=== PATIENT | female | born 1985 | race African-American/Black ===

== ENCOUNTER 2020-10-25 06:51 | Inpatient (IN) | payer MEDICAID ==
[~2020-10-25 06:51] MED LIST: Bupivacaine 0.25% 10 ML SDV ONE
[2020-10-25] MEDS ORDERED: Nalbuphine 10 MG/1 ML Vial IVPUSH PRN (06:58)
[2020-10-25] MEDS ORDERED: Ondansetron 4 MG/2 ML SDV IVPUSH PRN (06:58)
[2020-10-25] MEDS ORDERED: Sodium Chloride 0.9% 10 ML Syringe FLUSH PRN (06:58)
[2020-10-25] MEDS ORDERED: Oxytocin/Lactated Ringers 10 UNIT/1,000 ML BAG IV SCH ×2 (07:00)
--- NOTE | 2020-10-25 07:03 | PCM.LDHP ---
L&D History of Present Illness - General Date of Service: 10/25/20 Admit Problem/Dx: Patient Status Order with Admit Dx/Problem 10/25/20 07:00 Patient Status [ADT] Routine Admission Diagnosis/Problem Admission Diagnosis/Problem Normal in third trimester Source of Information: Patient History Limitations: Reports: No Limitations - History of Present Illness Introduction:: Patient is a 35 y/o at 39 0/7 wks who presents for IOL. Doing well. No contractions - Related Data Allergies/Adverse Reactions: Allergies Allergy/AdvReac Type Severity Reaction Status Date / Time No Known Allergies Allergy Verified 11/06/18 22:42 Home Medications: Home Meds Acetaminophen [Tylenol] 650 mg PO Q6H PRN tablet 11/08/18 [Rx] Benzocaine/Menthol [Dermoplast Pain Relief [place]] 1 spray TOP ASDIRECTED PRN canister 11/08/18 [Rx] Docusate Sodium [Colace] 100 mg PO BID PRN cap 11/08/18 [Rx] Hydrocortisone Acetate [Anucort-HC] 25 mg RECTAL BID PRN supp 11/08/18 [Rx] Ibuprofen [Motrin] 600 mg PO Q6H PRN tablet 11/08/18 [Rx] Lanolin [Lansinoh HPA] 1 applic TOP ASDIRECTED PRN tube 11/08/18 [Rx] Vit with Ca/FA/Iron [ Plus Iron] 1 each PO DAILY tablet 11/08/18 [Rx] witch Arvin [Tucks] 1 pad TOP ASDIRECTED PRN pad 11/08/18 [Rx] Past Medical History - Past Health History Medical/Surgical History: Denies 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, : 4 Para: 3 LMP (Approximate): Social & Family History - Family History Family Medical History: No Pertinent Family History - Tobacco Use Tobacco Use Status *Q: Never Tobacco User - Caffeine Use Caffeine Use: Reports: None - Alcohol Use Alcohol Use History: No - Recreational Drug Use Recreational Drug Use: No - Living Situation & Occupation Living situation: Reports: , with Spouse H&P Review of Systems - Review of Systems: Review Of Systems: See Below General: Reports: No Symptoms Pulmonary: Reports: No Symptoms Cardiovascular: Reports: No Symptoms Gastrointestinal: Reports: No Symptoms Genitourinary: Reports: No Symptoms Musculoskeletal: Reports: No Symptoms Psychiatric: Reports: No Symptoms Neurological: Reports: No Symptoms L&D Exam - Exam Exam: See Below - OB Specific Contraction Intensity: Irritability Movement: Active Heart Tones: Present Heart Tones per Min: 140 Heart Rate (FHR) Variability: Moderate (6-25 bmp) Presentation: Vertex - Schuster Score Schuster Score Cervix Position: Midposition Schuster Score Consistency: Soft Schuster Score Effacement: 31-50% Schuster Score Dilation: 3-4 cm Schuster Score 's Station: -2 Schuster Score Total: 7 - Exam General: Alert, Oriented, Cooperative Lungs: Clear to Auscultation, Normal Respiratory Effort Cardiovascular: Regular Rate, Regular Rhythm GI/Abdominal Exam: Soft, Non-Tender Genitourinary: Normal external exam Extremities: Normal Inspection Skin: Warm, Dry, Intact - Patient Data Result Diagrams: 10/25/20 07:25 - Problem List (1) 39 weeks gestation of SNOMED Code(s): 63498843 ICD Code: Z3A.39 - 39 WEEKS GESTATION OF Status: Acute Current Visit: Yes Problem List Initiated/Reviewed/Updated: Yes Orders Last 24hrs: Active Orders 24 hr Category Date Time Status Patient Status [ADT] Routine ADT 10/25/20 07:00 Ordered Activity as Tolerated [RC] PFP Care 10/25/20 07:00 Ordered Communication Order [RC] ASDIRECTED Care 10/25/20 07:00 Ordered Communication Order [RC] ASDIRECTED Care 10/25/20 07:00 Ordered Communication Order [RC] ASDIRECTED Care 10/25/20 07:00 Ordered Non Stress Test [RC] PER UNIT ROUTINE Care 10/25/20 07:00 Ordered Notify Provider [RC] ASDIRECTED Care 10/25/20 07:00 Ordered Notify Provider [RC] PRN Care 10/25/20 07:00 Ordered Peripheral IV Care [RC] . DIRECTED Care 10/25/20 07:01 Ordered Vaginal Exam [RC] ASDIRECTED Care 10/25/20 07:00 Ordered Vital Signs [RC] ASDIRECTED Care 10/25/20 07:00 Ordered Vital Signs [RC] PER UNIT ROUTINE Care 10/25/20 07:00 Ordered Regular Diet [DIET] Diet 10/25/20 Breakfast Ordered CBC W/O DIFF,HEMOGRAM [HEME] Routine Lab 10/25/20 06:58 Ordered CORONAVIRUS COVID-19 ROM [MOLEC] Stat Lab 10/25/20 07:02 Ordered RAPID PLASMA REAGIN,RPR [CHEM] Routine Lab 10/25/20 07:00 Ordered TYPE AND SCREEN [BBK] Routine Lab 10/25/20 06:58 Ordered Lactated Ringers [Ringers, Lactated] 1,000 ml Med 10/25/20 07:00 Ordered IV ASDIRECTED Nalbuphine [Nubain] Med 10/25/20 06:58 Ordered 10 mg IVPUSH Q2H PRN Ondansetron [Zofran] Med 10/25/20 06:58 Ordered 4 mg IVPUSH Q4H PRN Oxytocin/Lactated Ringers [Pitocin in LR 10 Units/1,000 Med 10/25/20 07:00 O rdered ML] 10 unit in 1,000 ml IV .CONTINUOUS Oxytocin/Lactated Ringers [Pitocin in LR 10 Units/1,000 Med 10/25/20 07:00 Ordered ML] 10 unit in 1,000 ml IV TITRATE Sodium Chloride 0.9% [Saline Flush] Med 10/25/20 06:58 Ordered 10 ml FLUSH ASDIRECTED PRN Electronic Heart Tones Internal [WOMSER] Per Unit Oth 10/25/20 07:00 Ordered Routine Peripheral IV Insertion Adult [OM.PC] Routine Oth 10/25/20 07:00 Ordered Resuscitation Status Routine Resus Stat 10/25/20 06:58 Ordered Assessment/Plan Comment:: * Labs to be done * GBS negative * Pitocin and AROM * Pain management per patient preference * Anticipate
[2020-10-25] MEDS ORDERED: ePHEDrine 50 MG/ML SDV IVPUSH PRN (07:07)
[2020-10-25] MEDS ORDERED: fentaNYL 100 MCG/2 ML SDV EPIDUR PRN (07:07)
[2020-10-25] MEDS ORDERED: Bupivacaine/fentaNYL/NS 100 ML Bag EPIDUR PRN (07:07)
[2020-10-25] MEDS ORDERED: diphenhydrAMINE 50 MG/ML SDV IVPUSH PRN (07:07)
[2020-10-25] MEDS: Lactated Ringers 1,000 ML IV SCH ×3 (07:56→11:52)
--- NOTE | 2020-10-25 11:21 | PCM.PREANE ---
Preanesthetic Assessment - Procedure Proposed Procedure: epidural - Anesthesia/Transfusion/Family Hx Anesthesia History: Prior Anesthesia Without Reaction Family History of Anesthesia Reaction: No Transfusion History: No Prior Transfusion(s) - Review of Systems General: Fatigue Pulmonary: No Symptoms Cardiovascular: No Symptoms Gastrointestinal: Abdominal Pain (labor) Neurological: No Symptoms Other: Reports: None - Physical Assessment Vital Signs: Last Vital Signs Temp 36.9 C 10/25/20 07:00 Pulse Resp 14 10/25/20 07:00 BP 123/75 10/25/20 07:00 Pulse Ox 100 10/25/20 07:00 Height: 1.63 m Weight: 96.978 kg ASA Class: 2 Mental Status: Alert & Oriented x3 Airway Class: Mallampati = 1 Dentition: Reports: Normal Dentition Thyro-Mental Finger Breadths: 3 Mouth Opening Finger Breadths: 3 ROM/Head Extension: Full Lungs: Clear to Auscultation, Normal Respiratory Effort Cardiovascular: Regular Rate, Regular Rhythm - Lab Values: Laboratory Last Values WBC 9.98 K/mm3 (3.98-10.04) 10/25/20 07:25 RBC 4.40 M/mm3 (3.98-5.22) 10/25/20 07:25 Hgb 12.8 gm/dl (11.2-15.7) 10/25/20 07:25 Hct 39.3 % (34.1-44.9) 10/25/20 07:25 MCV 89.3 fl (79.4-94.8) 10/25/20 07:25 MCH 29.1 pg (25.6-32.2) 10/25/20 07:25 MCHC 32.6 g/dl (32.2-35.5) 10/25/20 07:25 RDW Std Deviation 45.0 fL (36.4-46.3) 10/25/20 07:25 Plt Count 198 K/mm3 (182-369) 10/25/20 07:25 MPV 12.2 fl (9.4-12.3) 10/25/20 07:25 SARS-CoV-2 RNA (ROM) Negative (NEGATIVE) 10/25/20 07:45 Blood Type A POSITIVE 10/25/20 07:25 Gel Antibody Screen Negative 10/25/20 07:25 - Allergies Allergies/Adverse Reactions: Allergies Allergy/AdvReac Type Severity Reaction Status Date / Time No Known Allergies Allergy Verified 10/25/20 09:03 - Anesthesia Plan Pre-Op Medication Ordered: None - Acknowledgements Anesthesia Type Planned: Epidural PreAnesthesia Questionnaire - Past Health History Medical/Surgical History: Denies Medical/Surgical History Cardiovascular History: Reports: Other (See Below) Other Cardiovascular History: Hx racing heart/PVCs in 2nd trimester--Holter monitor worn for diagnostics, no treatments required. Still occurs occasionally pt states. 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, - Infectious Disease History Infectious Disease History: Reports: Novel Coronavirus, TB - Past Surgical History Cardiovascular Surgical History: Reports: None - SUBSTANCE USE Tobacco Use Status *Q: Never Tobacco User Second Hand Smoke Exposure: No Recreational Drug Use History: No - HOME MEDS Home Medications: Home Meds Vit with Ca/FA/Iron [ Plus Iron] 1 each PO DAILY tablet [Rx] - CURRENT (IN HOUSE) MEDS Current Meds: Current Medications Diphenhydramine HCl (Benadryl) 25 mg IVPUSH Q6H PRN PRN Reason: pruritis Ephedrine Sulfate (Ephedrine Sulfate) 5 mg IVPUSH ASDIRECTED PRN PRN Reason: Hypotension Fentanyl (Sublimaze) 100 mcg EPIDUR Q3H PRN PRN Reason: Pain Last Admin: 10/25/20 10:47 Dose: 100 mcg Documented by: Fentanyl/Bupivacaine HCl (Fentanyl/Bupivacaine/Ns 2 Mcg-0.125% 100 Ml) 100 ml EPIDUR ASDIRECTED PRN PRN Reason: Pain Last Admin: 10/25/20 10:48 Dose: 100 ml Documented by: Oxytocin/Lactated Ringer's (Pitocin In Lr 10 Units/1,000 Ml) 10 unit in 1,000 mls @ 12 mls/hr IV TITRATE WILEY; Protocol Last Titration: 10/25/20 09:51 Dose: 8 munits/min, 48 mls/hr Documented by: Oxytocin/Lactated Ringer's (Pitocin In Lr 10 Units/1,000 Ml) 10 unit in 1,000 mls @ 500 mls/hr IV .CONTINUOUS WILEY Lactated Ringer's (Ringers, Lactated) 1,000 mls @ 40 mls/hr IV ASDIRECTED WILEY Last Admin: 10/25/20 10:53 Dose: 40 mls/hr Documented by: Nalbuphine HCl (Nubain) 10 mg IVPUSH Q2H PRN PRN Reason: Pain Ondansetron HCl (Zofran) 4 mg IVPUSH Q4H PRN PRN Reason: Nausea/Vomiting Sodium Chloride (Saline Flush) 10 ml FLUSH ASDIRECTED PRN PRN Reason: Keep Vein Open
--- NOTE | 2020-10-25 12:10 | PCM.PNLD ---
Labor Progress Note - VS & Meds Vital Signs: Last Vital Signs Temp 36.9 C 10/25/20 07:00 Pulse Resp 14 10/25/20 07:00 BP 123/75 10/25/20 07:00 Pulse Ox 100 10/25/20 07:00 Active Medications: Current Medications Diphenhydramine HCl (Benadryl) 25 mg IVPUSH Q6H PRN PRN Reason: pruritis Ephedrine Sulfate (Ephedrine Sulfate) 5 mg IVPUSH ASDIRECTED PRN PRN Reason: Hypotension Fentanyl (Sublimaze) 100 mcg EPIDUR Q3H PRN PRN Reason: Pain Last Admin: 10/25/20 10:47 Dose: 100 mcg Documented by: Fentanyl/Bupivacaine HCl (Fentanyl/Bupivacaine/Ns 2 Mcg-0.125% 100 Ml) 100 ml EPIDUR ASDIRECTED PRN PRN Reason: Pain Last Admin: 10/25/20 10:48 Dose: 100 ml Documented by: Oxytocin/Lactated Ringer's (Pitocin In Lr 10 Units/1,000 Ml) 10 unit in 1,000 mls @ 12 mls/hr IV TITRATE WILEY; Protocol Last Titration: 10/25/20 09:51 Dose: 8 munits/min, 48 mls/hr Documented by: Oxytocin/Lactated Ringer's (Pitocin In Lr 10 Units/1,000 Ml) 10 unit in 1,000 mls @ 500 mls/hr IV .CONTINUOUS WILEY Lactated Ringer's (Ringers, Lactated) 1,000 mls @ 40 mls/hr IV ASDIRECTED WILEY Last Admin: 10/25/20 11:52 Dose: 40 mls/hr Documented by: Nalbuphine HCl (Nubain) 10 mg IVPUSH Q2H PRN PRN Reason: Pain Ondansetron HCl (Zofran) 4 mg IVPUSH Q4H PRN PRN Reason: Nausea/Vomiting Sodium Chloride (Saline Flush) 10 ml FLUSH ASDIRECTED PRN PRN Reason: Keep Vein Open - Uterine Contractions Uterine Monitoring Mode: External [place] Walk Contraction Intensity: Moderate - Monitoring Monitor Mode: External Ultrasound Heart Rate (FHR) Baseline: 130 Heart Rate (FHR) Variability: Moderate (6-25 bmp) Accelerations: Absent Decelerations: Early Strip Review: Category I - Vaginal Exam Dilation (cm): 4 Effacement (Percent): 25 Station: -2 Cervical Position: Midposition - Labor Progress (Free Text) Labor Progress: Doing well. Comfortable with epidural. Pitocin at 8. AROM performed with release of clear fluid. Continue present management
--- NOTE | 2020-10-25 12:54 | PCM.SN.2 ---
- Free Text/Narrative Note: 1232 pt complaining of right hand numb feeling and right eye twitching. Epidural turned off. Epidural catheter pulled back 2 cm and secured sterile technique. VSS Will reassess in an hour. out of room at 1253.
--- NOTE | 2020-10-25 13:32 | PCM.SN.2 ---
- Free Text/Narrative Note: 1325 in room epidural level at T6 patient complain of pain. Restart epidural at 10ml/hr. Encouraged to use button for bolus. VSS Out of room at 1330.
--- NOTE | 2020-10-25 15:00 | PCM.DEL ---
L & D Note - General Info Date of Service: 10/25/20 - Delivery Note Labor: Induced by ARM, Induced by Oxytocin Delivery Outcome: Livebirth Infant Delivery Method: Spontaneous Vaginal Delivery-Single Infant Delivery Mode: Spontaneous Presentation: Right Occiput Anterior (RENA) Nuchal Cord: None Anesthesia Type: Epidural Amniotic Fluid Description: Clear Episiotomy Type: None Laceration: None Placenta: Intact, Spontaneous Cord: 3 Vessels Estimated Blood Loss: 100 Resuscitation Needed: Yes [place]: Bulb Syringe, Stimulated, Warmed, [place] Used, Warmer Used Delivery Comments (Free Text/Narrative):: Patient found to be complete and began pushing. With maternal pushing effort head delivered from RENA presentation. No nuchal cord present. With gentle downward traction the shoulders and body delivered. Infant placed on maternal abdomen. Cord clamped and cut. Cord blood obtained. Placenta allowed time to separate and expelled intact. Inspection of perineum showed no lacerations - General Info Date of Service: 10/25/20 - Patient Data Vitals - Most Recent: Last Vital Signs Temp 36.9 C 10/25/20 07:00 Pulse Resp 14 10/25/20 07:00 BP 123/75 10/25/20 07:00 Pulse Ox 100 10/25/20 07:00 Weight - Most Recent: 96.978 kg - Problem List & Annotations (1) 39 weeks gestation of SNOMED Code(s): 64942507 Code(s): Z3A.39 - 39 WEEKS GESTATION OF Status: Acute Current Visit: Yes (2) Vaginal delivery SNOMED Code(s): 284157049 Code(s): O80 - ENCOUNTER FOR FULL-TERM UNCOMPLICATED DELIVERY Status: Acute Current Visit: No - Problem List Review Problem List Initiated/Reviewed/Updated: Yes - My Orders Last 24 Hours: My Active Orders 10/25/20 06:58 Nalbuphine [Nubain] 10 mg IVPUSH Q2H PRN Ondansetron [Zofran] 4 mg IVPUSH Q4H PRN Sodium Chloride 0.9% [Saline Flush] 10 ml FLUSH ASDIRECTED PRN Resuscitation Status Routine 10/25/20 07:00 Patient Status [ADT] Routine Activity as Tolerated [RC] PFP Communication Order [RC] ASDIRECTED Communication Order [RC] ASDIRECTED Communication Order [RC] ASDIRECTED Non Stress Test [RC] PER UNIT ROUTINE Notify Provider [RC] ASDIRECTED Notify Provider [RC] PRN Vital Signs [RC] ASDIRECTED Vital Signs [RC] PER UNIT ROUTINE Regular Diet [DIET] Lactated Ringers [Ringers, Lactated] 1,000 ml IV ASDIRECTED Oxytocin/Lactated Ringers [Pitocin in LR 10 Units/1,000 ML] 10 unit in 1,000 ml IV .CONTINUOUS Oxytocin/Lactated Ringers [Pitocin in LR 10 Units/1,000 ML] 10 unit in 1,000 ml IV TITRATE Electronic Heart Tones Internal [WOMSER] Per Unit Routine Peripheral IV Insertion Adult [OM.PC] Routine 10/25/20 07:01 Peripheral IV Care [RC] . DIRECTED 10/25/20 07:25 RAPID PLASMA REAGIN,RPR [CHEM] Routine 10/25/20 10:38 PATIENT RETYPE [BBK] Routine - Assessment Assessment:: PPD#0 - Plan Plan:: * Routine cares * Breast feeding * Discharge home in 1-2 days
[2020-10-25] MEDS ORDERED: Acetaminophen 325 MG Tab PO PRN (15:17)
[2020-10-25] MEDS ORDERED: Benzocaine/Menthol 20%-0.5% Spray 56 GM Canister TOP PRN (15:17)
[2020-10-25] MEDS ORDERED: Docusate Sodium 100 MG Cap PO PRN (15:17)
[2020-10-25] MEDS ORDERED: Witch Hazel Medicated Pads 40/Jar TOP PRN (15:17)
[2020-10-25] MEDS: Ibuprofen 600 MG Tab PO PRN (16:22)
--- NOTE | 2020-10-26 08:26 | PCM.PNPP ---
- General Info Date of Service: 10/26/20 Functional Status: Reports: Pain Controlled, Tolerating Diet, Ambulating, Urinating - Review of Systems General: Reports: No Symptoms Pulmonary: Reports: No Symptoms Cardiovascular: Reports: No Symptoms Gastrointestinal: Reports: No Symptoms Genitourinary: Reports: No Symptoms Musculoskeletal: Reports: No Symptoms Neurological: Reports: No Symptoms - Patient Data Vital Signs - Most Recent: Last Vital Signs Temp 36.9 C 10/26/20 03:03 Pulse 67 10/26/20 03:03 Resp 16 10/26/20 03:03 BP 125/87 10/26/20 03:03 Pulse Ox 98 10/26/20 03:03 Weight - Most Recent: 96.978 kg I&O - Last 24 Hours: Intake & Output 10/25/20 10/26/20 10/26/20 22:59 06:59 14:59 Intake Total 3180 Output Total 250 Balance 2930 Lab Results - Last 24 Hours: Laboratory Results - last 24 hr 10/25/20 10/25/20 10/25/20 Range/Units 07:25 07:25 07:45 RPR Non-reactive (NONREACTIVE) SARS-CoV-2 RNA (ROM) Negative (NEGATIVE) Blood Type A POSITIVE Gel Antibody Screen Negative Med Orders - Current: Current Medications Acetaminophen (Tylenol) 650 mg PO Q4H PRN PRN Reason: mild pain or fever Benzocaine/Menthol (Dermoplast Pain Relief [place]) 0 gm TOP ASDIRECTED PRN PRN Reason: Perineal Comfort Measure Last Admin: 10/25/20 16:23 Dose: 1 can Documented by: Docusate Sodium (Colace) 100 mg PO BID PRN PRN Reason: Constipation Ibuprofen (Motrin) 600 mg PO Q6H PRN PRN Reason: Mild pain or fever Last Admin: 10/25/20 16:22 Dose: 600 mg Documented by: Meet Lopez ([place]) 1 pad TOP ASDIRECTED PRN PRN Reason: Perineal Comfort Measure Last Admin: 10/25/20 16:23 Dose: 1 tub Documented by: Discontinued Medications Bupivacaine HCl (Sensorcaine-Mpf 0.25%) 10 ml .ROUTE .STK-MED ONE Stop: 10/25/20 00:01 Diphenhydramine HCl (Benadryl) 25 mg IVPUSH Q6H PRN PRN Reason: pruritis Ephedrine Sulfate (Ephedrine Sulfate) 5 mg IVPUSH ASDIRECTED PRN PRN Reason: Hypotension Fentanyl (Sublimaze) 100 mcg EPIDUR Q3H PRN PRN Reason: Pain Last Admin: 10/25/20 10:47 Dose: 100 mcg Documented by: Fentanyl/Bupivacaine HCl (Fentanyl/Bupivacaine/Ns 2 Mcg-0.125% 100 Ml) 100 ml E PIDUR ASDIRECTED PRN PRN Reason: Pain Last Admin: 10/25/20 10:48 Dose: 100 ml Documented by: Oxytocin/Lactated Ringer's (Pitocin In Lr 10 Units/1,000 Ml) 10 unit in 1,000 mls @ 12 mls/hr IV TITRATE WILEY; Protocol Last Titration: 10/25/20 14:02 Dose: 16 munits/min, 96 mls/hr Documented by: Oxytocin/Lactated Ringer's (Pitocin In Lr 10 Units/1,000 Ml) 10 unit in 1,000 mls @ 500 mls/hr IV .CONTINUOUS WILEY Last Admin: 10/25/20 15:35 Dose: 500 mls/hr Documented by: Lactated Ringer's (Ringers, Lactated) 1,000 mls @ 40 mls/hr IV ASDIRECTED WILEY Last Admin: 10/25/20 11:52 Dose: 40 mls/hr Documented by: Nalbuphine HCl (Nubain) 10 mg IVPUSH Q2H PRN PRN Reason: Pain Ondansetron HCl (Zofran) 4 mg IVPUSH Q4H PRN PRN Reason: Nausea/Vomiting Sodium Chloride (Saline Flush) 10 ml FLUSH ASDIRECTED PRN PRN Reason: Keep Vein Open - Infant Interaction Disposition, : in Room with Family Infant Interaction: Holding Feeding: Attempted ; Nursed Fair/Poor Support Person: - Recovery Exam Fundal Tone: Firm Fundal Level: 1 Fingerbreadths Below Umbilicus Fundal Placement: Midline Lochia Amount: Small Lochia Color: Rubra/Red Perineum Description: Intact, Minimal Bruising/Swelling Episiotomy/Laceration: None Bladder Status: Voiding Urinary Elimination: Voided - Exam General: Alert, Oriented, Cooperative GI/Abdominal Exam: Soft, Non-Tender Extremities: Normal Inspection Skin: Warm, Dry, Intact - Problem List & Annotations (1) 39 weeks gestation of SNOMED Code(s): 10005450 Code(s): Z3A.39 - 39 WEEKS GESTATION OF Status: Acute Current Visit: Yes (2) Vaginal delivery SNOMED Code(s): 952574959 Code(s): O80 - ENCOUNTER FOR FULL-TERM UNCOMPLICATED DELIVERY Status: Acute Current Visit: No - Problem List Review Problem List Initiated/Reviewed/Updated: Yes - My Orders Last 24 Hours: My Active Orders 10/25/20 15:17 Acetaminophen [TylenoL] 650 mg PO Q4H PRN Benzocaine/Menthol [Dermoplast Pain Relief [place]] See Dose Instructions TOP ASDIRECTED PRN Docusate Sodium [Colace] 100 mg PO BID PRN Ibuprofen [Motrin] 600 mg PO Q6H PRN witch Arvin [Tucks] 1 pad TOP ASDIRECTED PRN Heat Therapy [OM.PC] PRN 10/25/20 15:17 Activity as Tolerated [RC] PER UNIT ROUTINE Vital Signs [RC] 03,,15,21 Assess Lochia [WOMSER] Per Unit Routine Assess Uterine Involution [WOMSER] Per Unit Routine Breast Pump [WOMSER] Per Unit Routine Ice Therapy [OM.PC] Per Unit Routine Perineal Care [OM.PC] Per Unit Routine Peripheral IV Discontinue [OM.PC] Routine Sitz Bath [OM.PC] Per Unit Routine 10/25/20 Dinner Regular Diet [DIET] 10/26/20 15:17 Heat Therapy [OM.PC] PRN - Assessment Assessment:: PPD#1 - Plan Plan:: * Routine cares * Breast feeding * Discharge home today
--- NOTE | 2020-10-26 08:30 | PCM.DCSUM1 ---
Discharge Summary - Discharge Data Discharge Date: 10/26/20 Discharge Disposition: Home, Self-Care 01 Condition: Good - Referral to Home Health Primary Care Physician: Bernice Samuels MD - Discharge Diagnosis/Problem(s) (1) 39 weeks gestation of SNOMED Code(s): 92836203 ICD Code: Z3A.39 - 39 WEEKS GESTATION OF Status: Acute Current Visit: Yes (2) Vaginal delivery SNOMED Code(s): 458959152 ICD Code: O80 - ENCOUNTER FOR FULL-TERM UNCOMPLICATED DELIVERY Status: Acute Current Visit: No - Patient Summary/Data Complications: None Consults: None Recommended Follow-up Testing/Procedures: Follow up in 3 weeks Hospital Course: 35 y/o at 39 0/7 wks who presented for elective IOL. This was done with pitocin and AROM. She progressed well to complete dilation and underwent an uncomplicated . See delivery note. did well and was discharged home on PPD#1 - Patient Instructions Diet: Regular Diet as Tolerated Activity: As Tolerated Activity, Other: Pelvic rest for 6 weeks Driving: May Drive Today Showering/Bathing: May Shower Showering/Bathing, Other: May Bathe Notify Provider of: Fever, Increased Pain, Swelling and Redness, Drainage, Nausea and/or Vomiting - Discharge Plan *PRESCRIPTION DRUG MONITORING PROGRAM REVIEWED*: No *COPY OF PRESCRIPTION DRUG MONITORING REPORT IN PATIENT ERIKA: No Home Medications: Home Meds Vit with Ca/FA/Iron [ Plus Iron] 1 each PO DAILY tablet 11/08/18 [Rx] Docusate Sodium [Colace] 100 mg PO BID PRN cap 10/26/20 [Rx] Ibuprofen [Motrin] 600 mg PO Q6H PRN tablet 10/26/20 [Rx] Referrals: Bernice Samuels MD [Primary Care Provider] - (3 weeks for and preop appointment ) - Discharge Summary/Plan Comment DC Time >30 min.: No - Patient Data Vitals - Most Recent: Last Vital Signs Temp 36.9 C 10/26/20 03:03 Pulse 67 10/26/20 03:03 Resp 16 10/26/20 03:03 BP 125/87 10/26/20 03:03 Pulse Ox 98 10/26/20 03:03 Weight - Most Recent: 96.978 kg I&O - Last 24 hours: Intake & Output 10/25/20 10/26/20 10/26/20 22:59 06:59 14:59 Intake Total 3180 Output Total 250 Balance 2930 Lab Results - Last 24 hrs: Laboratory Results - last 24 hr 10/25/20 10/25/20 10/25/20 Range/Units 07:25 07:25 07:45 RPR Non-reactive (NONREACTIVE) SARS-CoV-2 RNA (ROM) Negative (NEGATIVE) Blood Type A POSITIVE Gel Antibody Screen Negative Med Orders - Current: Current Medications Acetaminophen (Tylenol) 650 mg PO Q4H PRN PRN Reason: mild pain or fever Benzocaine/Menthol (Dermoplast Pain Relief [place]) 0 gm TOP ASDIRECTED PRN PRN Reason: Perineal Comfort Measure Last Admin: 10/25/20 16:23 Dose: 1 can Documented by: Docusate Sodium (Colace) 100 mg PO BID PRN PRN Reason: Constipation Ibuprofen (Motrin) 600 mg PO Q6H PRN PRN Reason: Mild pain or fever Last Admin: 10/25/20 16:22 Dose: 600 mg Documented by: Meet Lopez ([facility]) 1 pad TOP ASDIRECTED PRN PRN Reason: Perineal Comfort Measure Last Admin: 10/25/20 16:23 Dose: 1 tub Documented by: Discontinued Medications Bupivacaine HCl (Sensorcaine-Mpf 0.25%) 10 ml .ROUTE .STK-MED ONE Stop: 10/25/20 00:01 Diphenhydramine HCl (Benadryl) 25 mg IVPUSH Q6H PRN PRN Reason: pruritis Ephedrine Sulfate (Ephedrine Sulfate) 5 mg IVPUSH ASDIRECTED PRN PRN Reason: Hypotension Fentanyl (Sublimaze) 100 mcg EPIDUR Q3H PRN PRN Reason: Pain Last Admin: 10/25/20 10:47 Dose: 100 mcg Documented by: Fentanyl/Bupivacaine HCl (Fentanyl/Bupivacaine/Ns 2 Mcg-0.125% 100 Ml) 100 ml EPIDUR ASDIRECTED PRN PRN Reason: Pain Last Admin: 10/25/20 10:48 Dose: 100 ml Documented by: Oxytocin/Lactated Ringer's (Pitocin In Lr 10 Units/1,000 Ml) 10 unit in 1,000 mls @ 12 mls/hr IV TITRATE WILEY; Protocol Last Titration: 10/25/20 14:02 Dose: 16 munits/min, 96 mls/hr Documented by: Oxytocin/Lactated Ringer's (Pitocin In Lr 10 Units/1,000 Ml) 10 unit in 1,000 mls @ 500 mls/hr IV .CONTINUOUS WILEY Last Admin: 10/25/20 15:35 Dose: 500 mls/hr Documented by: Lactated Ringer's (Ringers, Lactated) 1,000 mls @ 40 mls/hr IV ASDIRECTED WILEY Last Admin: 10/25/20 11:52 Dose: 40 mls/hr Documented by: Nalbuphine HCl (Nubain) 10 mg IVPUSH Q2H PRN PRN Reason: Pain Ondansetron HCl (Zofran) 4 mg IVPUSH Q4H PRN PRN Reason: Nausea/Vomiting Sodium Chloride (Saline Flush) 10 ml FLUSH ASDIRECTED PRN PRN Reason: Keep Vein Open
[2020-10-26] MEDS: Ibuprofen 600 MG Tab PO PRN (11:07)
--- NOTE | 2020-10-26 14:04 | PCM48HPAN ---
Post Anesthesia Note - EVALUATION WITHIN 48HRS OF ANESTHETIC Vital Signs in Normal Range: Yes Patient Participated in Evaluation: Yes Respiratory Function Stable: Yes Airway Patent: Yes Cardiovascular Function Stable: Yes Hydration Status Stable: Yes Pain Control Satisfactory: Yes Nausea and Vomiting Control Satisfactory: Yes Mental Status Recovered: Yes Vital Signs: Last Vital Signs Temp 36.9 C 10/26/20 09:26 Pulse 78 10/26/20 09:26 Resp 15 10/26/20 09:26 BP 115/76 10/26/20 09:26 Pulse Ox 97 10/26/20 09:26
== END 2020-10-26 16:15 | disposition home or self-care (01) | DRG 807 ==
LOC: JD.OB 06:51 → OBSVTOIN 14:48 → JD.OB 14:49
PROVIDERS: ADMIT Obstetrics & Gynecology; ATTEND Obstetrics & Gynecology
PROC: 10E0XZZ Delivery of Products of Conception, External Approach (ICD-10-PCS; principal; 2020-10-25)
PROC: 10907ZC Drainage of Amniotic Fluid, Therapeutic from Products of Conception, Via Natural or Artificial Opening (ICD-10-PCS; 2020-10-25)
PROC: 3E033VJ Introduction of Other Hormone into Peripheral Vein, Percutaneous Approach (ICD-10-PCS; 2020-10-25)
PROC: 3E0R3BZ Introduction of Anesthetic Agent into Spinal Canal, Percutaneous Approach (ICD-10-PCS; 2020-10-25)
PROC: 00HU33Z Insertion of Infusion Device into Spinal Canal, Percutaneous Approach (ICD-10-PCS; 2020-10-25)
DX: O80 Encounter for full-term uncomplicated delivery (principal); Z37.0 Single live birth; Z20.828 Contact with and (suspected) exposure to other viral communicable diseases; Z3A.39 39 weeks gestation of pregnancy
CPT/HCPCS: 36415; 51702; 59025; 59409; 85027; 86592; 86850; 86900; 86901; A9270-GY; J2590; J3010; J3490; J7120; U0002